=== PATIENT | female | born 1995 | race Two or more races ===

== ENCOUNTER 2025-01-23 08:55 | Outpatient (AMB) | payer MEDICAID, SELFPAY ==
--- NOTE | 2025-01-23 09:10 | AMB.OBINITIA ---
Vital Signs 01/23/25 09:15 Height 1.5 m Height Method Stated Weight 66.735 kg Weight Measurement Method Standing Scale BMI 29.7 BP 103/66 Blood Pressure Source Automatic Cuff Blood Pressure Location Left Upper Arm Position Sitting Respiration 20 Pulse 103 H Pulse Source Monitor Temp 98.2 F Temp Source Oral Pulse Oximetry (%) 98 Oxygen Delivery Method Room Air Allergies/Home Meds Allergies & Medications Allergies No Known Allergies Allergy (Verified 01/23/25 09:17) Intake Visit Data Collection New Patient or Established: Established Patient (seen at [facility] within 3 years) Reason for Visit:: CARE TRANSFER Seen by Clinical Staff ONLY (RN/MA): No Manager Strategy & Account Required: No Do You Feel Safe at Home: Yes Authorities Contacted: N/A PCP or OBGYN visit in last 3 months: Yes Hx Now: Yes Are you currently on any form of Control: No Last menstrual period: 06/07/24 Pain Present Currently: No Pain Scale Used: Hughes-Escobar/Numerical Pain scale:: 0 Smoking Status Smoking Status: Never smoker Questionnaires Covid-19 Vaccine Questionnaire Has patient been vacinated for Covid-19 Have you been vacinated for Covid-19: No PHQ-9 PHQ-2 Over the last 2 weeks, how often have you been bothered by any of the following problems? 1. Little interest or pleasure in doing things: not at all 2. Feeling down, depressed, or hopeless: not at all Total score: 0 PHQ-9 3. Trouble falling or staying asleep, or sleeping too much: Not at all 4. Feeling tired or having little energy: Not at all 5. Poor appetite or overeating: Not at all 6. Feeling bad about yourself - or that you are a failure or have let yourself or your family down: Not at all 7. Trouble concentrating on things, such as reading the newspaper or watching television: Not at all 8. Moving or speaking so slowly that other people could have noticed? - Or the opposite - being so fidgety or restless that you have been moving around a lot more than usual: not at all 9. Thoughts that you would be better off or of hurting yourself in some way: Not at all Total score: 0 Source: Developed by Drs. Brian Price, Gisell B.Rafal Choudhury and colleagues, with an educational janelle from [employer]. Depression screen completed yes Social History Living Situation History Lives With: Family Housing: House Tobacco History Smoking Status: Never smoker Second Hand Smoke Exposure: No Alcohol History Alcohol Intake: Never Substance Use History Substance Use: NONE Domestic Abuse History Do You Feel Safe at Home: Yes Past Medical History Past Medical History Have you ever been diagnosed with any of the following: Neurological Problems Cerebrovascular Accident (CVA): No Transient Ischemic Attacks (TIA): No Dementia: No Alzheimer's Disease: No Parkinson's Disease: No Seizures: No Multiple Sclerosis: No Cerebral Palsy: No Guillain-[place] Syndrome: No Hernandez's Palsy: No Subdural Hematoma: No Migraine: No Cardiology Problems Myocardial Infarction: No Cardiac Arrhythmia: No Atrial Fibrillation: No Angina: No Respiratory Problems Chronic Obstructive Pulmonary Disease (COPD): No Asthma: No Bronchitis: No Emphysema: No Pneumonia: No Tuberculosis: No Hx Cough: No Cough: No Wheezing: No Chest Deformities: No Smoking: No Smoking Cessation Counseling: No Smoking Exposure: No Tobacco Use: No Stomache/Intestinal Problems Liver Cancer: No Hepatitis: No Cirrhosis: No Celiac Disease: No Gall Bladder Disease: No Gastrointestinal Bleed: No Diverticulitis: No Diverticulosis: No Ulcer: No Crohn's Disease: No Genital/Urinary Problems Chronic Kidney Disease: No Renal Disease: No Kidney Stones: No Polycystic Kidney Disease: No Neurogenic Bladder: No Reproductive Problems Breast Cancer: No Endometriosis: No Fibroids: No Genital Herpes: No Gonorrhea: No Previous Pregnancies: No Musculoskeletal Problems Muscular Dystrophy: No Myasthenia Gravis: No Marfan's Syndrome: No Bone Cancer: No Head,Eye,Nose,Throat Problems Cataracts: No Glaucoma: No Blind: No Retinal Detachment: No Endocrine Problems Diabetes Mellitus Type 1: No Diabetes Mellitus Type 2: No Kurtis's Syndrome: No Marsing's Disease: No Adrenal Disease: No Graves' Disease: No Blood Problems Anemia: No Leukemia: No Psychologic Problems Schizophrenia: No Recreational Drug Use: No Depression: No Anxiety: No Behavior Problems: No Depression: No Other Problems Hospitalization: No Hepatitis A: No Hepatitis B: No Hepatitis C: No Surgical History Angioplasty: No Appendectomy: No Breast Surgery: No Cancer Surgery: No Cholecystectomy: No Colostomy: No History of Present Illness HPI Narrative 29 yo for 1st visit to [facility]. transfer from [facility]. lmp 9/3/24. EDC 03/12/25. IUP 33w2. Thus far has been uncomplicated. no PMH, no social habit, no surgery. partner involved. fetus active, no PTL complaints. last sono at [facility] was 01/20/25. refused TDAP. med release done OB Initial Visit OB Flowsheet OB Flowsheet Initial Weight: Not Recorded Date <del>?</del> EGA Weight Edema CTX Effacement BP Fundal ht Pres Dilation Effacement Station Visit Note Alb Glu FHR Mov 01/23/25 <del>?</del> 32w 6d 66.735 kg absent absent 33 Patient is OB transfer of care from [facility]. Last period was June 07, 2024. Estimated due date March 12, 2025. So far has been uncomplicated. Patient had several maternal- medicine appointments. Her last sono was January 16, 2025. Reports movement. Denies any signs or symptoms of labor. Patient has backache impression. Medical release for OB records was signed. 124 active Menstrual History Menstrual reliability: definite Flow: normal Menstrual regularity: regular Monthly: Yes Age at menarche: 14 On control pills at conception: No Associated symptoms (LMP): Denies amenorrhea, nausea, vomiting, fatigue, breast tenderness, urinary frequency, irritability, bloating or other OB History : 1 Para: 0 Hx # Pregnancies: 0 Hx Total # of Abortions (Spontaneous & Elective): 0 # of Living Children: 0 Infection History & Risk Evaluation History of STDs: none Genetic Screening & History Genetic Screening/Teratology Counseling - Includes patient, baby's father, or anyone in either family with: 1. Patient's age 35 years or older as of estimated date of delivery: No 2. Thalassemia (Yoruba, Kinyarwanda, Mediterranean, or Background); MCV less than 80: No 3. Neural Tube Defect (Meningomyelocele, Spina Bifida, or Anencephaly): No 4. Congenital Heart Defect: No 5. Down Syndrome: No 6. Wilfrid-Sachs (Ashkenazi [place], Cajun, [place]): No 7. Patrick Disease (Ashkenazi Holiness): No 8. Familial Dysautonomia (Ashkenazi Holiness): No 9. Sickle Cell Disease or Trait (): No 10. Hemophilia or other blood disorders: No 11. Muscular Dystrophy: No 12. Cystic Fibrosis: No 13. Elzbieta's Chorea: No 14. Mental Retardation/Autism: No 15. Other inherited genetic or chromosomal disorder: No 16. Maternal Metabolic Disorder (EG,TYPE 1 Diabetes, PKU): No 17. Patient or baby's father had a child with defects not listed above: No 18. Recurrent loss or a stillbirth: No 19. Medications (including supplements, vitamins, herbs or otc drugs)/illicit/recreational drugs/alcohol since last menstrual period: No 20. Any other: No Infection History 1. Live with someone with TB or exposed to TB: No 2. Rash or viral illness since last menstrual period: No 3. Hepatitis B,C: No Other (see comments) Source: [employer] Review of Systems Review of Systems Systems Reviewed: All systems reviewed, normal except as documented Constitutional Constitutional: Denies fatigue Gastrointestinal Gastrointestinal: Denies bloating, Denies nausea and Denies vomiting Genitourinary Genitourinary: Denies amenorrhea and Denies urinary frequency Psychiatric Psychiatric: Denies irritability Endocrine Endocrine: Denies fatigue Exam General Limitations: no limitations General Appearance: alert, in no apparent distress, comfortable, cooperative, healthy appearing, well developed and well groomed Chest Chest inspection: Present normal inspection and symmetric chest wall rise Resp Respiratory exam: Present normal lung sounds bilaterally Card Cardiovascular exam: Present regular rate, normal rhythm and normal heart sounds Abdominal Abdominal exam: Present soft (fh:33, fht 125) and normal bowel sounds Psych Psychiatric exam: Present normal affect and normal mood Assessment & Plan Diagnosis / Problem List (1) Encounter for supervision of normal first , third trimester: Status: Acute Additional Plan Follow Up: 2 Weeks (ob) Office Procedures OB Clinic LOC & Office Proc's Nursing/Assessment Patient Status: Initial/New Patient OB Clinic Nursing Assessment: Medication Reconciliation, Update PMH in EMR and Vital Signs OB Clinic Coordination of Care: Complex Care and Chronic Disease 1-5, Consent,records obtained, informed consent, Education Simp Pt/Fam, Lab and Imaging orders, Results/Orders obtained and Staff clarify orders Special Needs: Heart tones New Patient Charge New Patient Point Assignment: [id number] New Patient Point Charge: PIG IRON LOADER Level 4 ([id number])
[2025-01-23 09:15] VITALS: BP 103/66; PULSE 103; RESP 20; TEMP 36.8; O2SAT 98; BMI 29.7
== END 2025-01-23 09:50 | disposition home or self-care (01) ==
LOC: HODSOBC 08:55
PROVIDERS: Supervising Provider Obstetrics & Gynecology; Visit Provider Advanced Practice Midwife
DX: Z34.03 Encounter for supervision of normal first pregnancy, third trimester (principal); Z3A.32 32 weeks gestation of pregnancy
CPT/HCPCS: 99204; G0463

== ENCOUNTER 2025-02-06 10:07 | Outpatient (AMB) | payer MEDICAID, SELFPAY ==
--- NOTE | 2025-02-06 10:31 | AMB.OBVISIT ---
Vital Signs 02/06/25 10:32 Height 1.5 m Height Method Stated Weight 66.791 kg Weight Measurement Method Standing Scale BMI 29.7 BP 116/75 Blood Pressure Source Automatic Cuff Blood Pressure Location Left Upper Arm Position Sitting Respiration 18 Pulse 99 Pulse Source Monitor Temp 97.2 F Temp Source Oral Pulse Oximetry (%) 97 Oxygen Delivery Method Room Air Allergies/Home Meds Allergies & Medications Allergies No Known Allergies Allergy (Verified 02/06/25 10:36) Medication Reconciliation clotrimazole 2 % vaginal cream (Gyne-Lotrimin) 1 appful vaginal QHS 3 days #21 grams 02/06/25 [Rx] Intake Visit Data Collection New Patient or Established: Established Patient (seen at [facility] within 3 years) Reason for Visit:: obc Seen by Clinical Staff ONLY (RN/MA): No Entrepreneurship Program Director Required: No Do You Feel Safe at Home: Yes Authorities Contacted: N/A PCP or OBGYN visit in last 3 months: Yes Date of Last PCP or OBGYN visit: 01/23/25 Hx Now: Yes Are you currently on any form of Control: No Pain Present Currently: No Pain Scale Used: Hughes-Escobar/Numerical Pain scale:: 0 Smoking Status Smoking Status: Never smoker Questionnaires Covid-19 Vaccine Questionnaire Has patient been vacinated for Covid-19 Have you been vacinated for Covid-19: Yes PHQ-9 PHQ-2 Over the last 2 weeks, how often have you been bothered by any of the following problems? 1. Little interest or pleasure in doing things: not at all 2. Feeling down, depressed, or hopeless: not at all Total score: 0 PHQ-9 3. Trouble falling or staying asleep, or sleeping too much: Not at all 4. Feeling tired or having little energy: Not at all 5. Poor appetite or overeating: Not at all 6. Feeling bad about yourself - or that you are a failure or have let yourself or your family down: Not at all 7. Trouble concentrating on things, such as reading the newspaper or watching television: Not at all 8. Moving or speaking so slowly that other people could have noticed? - Or the opposite - being so fidgety or restless that you have been moving around a lot more than usual: not at all 9. Thoughts that you would be better off or of hurting yourself in some way: Not at all Total score: 0 If you checked off any problems, how difficult have these problems made it for you to do your work, take care of things at home, or get along with other people?: not difficult at all Source: Developed by Drs. Brian Price, Gisell Herzog, Rafal Leong and colleagues, with an educational janelle from [employer]. Depression screen completed yes Social History Living Situation History Marital Status: Lives With: Family Housing: House Tobacco History Smoking Status: Never smoker Second Hand Smoke Exposure: No Alcohol History Alcohol Intake: Never Substance Use History Substance Use: NONE Domestic Abuse History Do You Feel Safe at Home: Yes Past Medical History Past Medical History Have you ever been diagnosed with any of the following: Neurological Problems Cerebrovascular Accident (CVA): No Transient Ischemic Attacks (TIA): No Dementia: No Alzheimer's Disease: No Parkinson's Disease: No Seizures: No Multiple Sclerosis: No Cerebral Palsy: No Guillain-[place] Syndrome: No Hernandez's Palsy: No Subdural Hematoma: No Migraine: No Cardiology Problems Myocardial Infarction: No Cardiac Arrhythmia: No Atrial Fibrillation: No Angina: No Respiratory Problems Chronic Obstructive Pulmonary Disease (COPD): No Asthma: No Bronchitis: No Emphysema: No Pneumonia: No Tuberculosis: No Hx Cough: No Cough: No Wheezing: No Chest Deformities: No Smoking: No Smoking Cessation Counseling: No Smoking Exposure: No Tobacco Use: No Stomache/Intestinal Problems Liver Cancer: No Hepatitis: No Cirrhosis: No Celiac Disease: No Gall Bladder Disease: No Gastrointestinal Bleed: No Diverticulitis: No Diverticulosis: No Ulcer: No Crohn's Disease: No Genital/Urinary Problems Renal Disease: No Kidney Stones: No Polycystic Kidney Disease: No Neurogenic Bladder: No Reproductive Problems Breast Cancer: No Endometriosis: No Fibroids: No Genital Herpes: No Gonorrhea: No Previous Pregnancies: No Musculoskeletal Problems Muscular Dystrophy: No Myasthenia Gravis: No Marfan's Syndrome: No Bone Cancer: No Head,Eye,Nose,Throat Problems Cataracts: No Glaucoma: No Blind: No Retinal Detachment: No Endocrine Problems Diabetes Mellitus Type 1: No Diabetes Mellitus Type 2: No Kurtis's Syndrome: No Florence's Disease: No Adrenal Disease: No Graves' Disease: No Blood Problems Anemia: No Leukemia: No Psychologic Problems Schizophrenia: No Recreational Drug Use: No Depression: No Anxiety: No Behavior Problems: No Depression: No Other Problems Hospitalization: No Hepatitis A: No Hepatitis B: No Hepatitis C: No Surgical History Angioplasty: No Appendectomy: No Breast Surgery: No Cancer Surgery: No Cholecystectomy: No Colostomy: No Care OB Visit Log OB Flowsheet Initial Weight: Not Recorded Date <del>?</del> EGA Weight Edema CTX Effacement BP Fundal ht Pres Dilation Effacement Station Visit Note Alb Glu FHR Mov 01/23/25 <del>?</del> 32w 6d 66.735 kg absent absent 103/66 33 Patient is OB transfer of care from [facility]. Last period was June 07, 2024. Estimated due date March 12, 2025. So far has been uncomplicated. Patient had several maternal- medicine appointments. Her last sono was January 16, 2025. Reports movement. Denies any signs or symptoms of labor. Patient has backache impression. Medical release for OB records was signed. 124 active 02/06/25 <del>?</del> 34w 6d 66.791 kg absent absent 116/75 34 cephalic complaints of vaginal discharge, itching and burning, patient also complains of labial bumps x 2 week/painful, fetus active, no bleeding or leaking. no c/o contraction. curdy white discharge, vagina red, several cluster of lesion, crease of groin, papular. hepes culture today, nuswab plus, gynelotrimin x 7 days at night, no sex, ptl precaution, fkc bid. rtc 1 week oBC and gbs 135 active KYRA Calculator Estimated Delivery Date Method Current WG Current Estimate 03/14/25 Ultrasound #1 34w 6d Other Estimates 03/14/25 LMP (Certain) 34w 6d Assessment & Plan Diagnosis / Problem List (1) Encounter for supervision of normal first , third trimester: Status: Acute (2) Recurrent candidiasis of vagina: Status: Acute (3) Herpes genitalis: Status: Acute Qualifiers: Herpes simplex infection site: other site of urogenital tract Qualified Code(s): A60.09 - Herpesviral infection of other urogenital tract Plan gynelotrimin x3, continue PNV, comfort measure for vaginitis, no sex/safe sex, Nuswab plus and herpes culture today. discuss FKC bid and labor precaution. RTC 1 week and gbs Additional Plan Follow Up: 1 Week (obc and gbs) Office Procedures OB Clinic LOC & Office Proc's Nursing/Assessment Patient Status: Established Patient OB Clinic Nursing Assessment: BP Monitoring, Medication Reconciliation, Update PMH in EMR and Vital Signs OB Clinic Coordination of Care: Consent,records obtained, informed consent, Education Simp Pt/Fam and Staff clarify orders Special Needs: Heart tones Established Patient Charge Established Patient Point Assignment: 105 Established Patient Point Charge: EP Level 3 (80-115)
[2025-02-06 10:32] VITALS: BP 116/75; PULSE 99; RESP 18; TEMP 36.2; O2SAT 97; BMI 29.7
== END 2025-02-06 10:51 | disposition home or self-care (01) ==
LOC: HODSOBC 10:07
PROVIDERS: Supervising Provider Advanced Practice Midwife; Visit Provider Advanced Practice Midwife
DX: O09.893 Supervision of other high risk pregnancies, third trimester (principal); O98.813 Other maternal infectious and parasitic diseases complicating pregnancy, third trimester; B37.31 Acute candidiasis of vulva and vagina; O98.313 Other infections with a predominantly sexual mode of transmission complicating pregnancy, third trimester; Z3A.34 34 weeks gestation of pregnancy; A60.00 Herpesviral infection of urogenital system, unspecified
CPT/HCPCS: 81001; 99213; G0463

== ENCOUNTER 2025-02-13 11:52 | Outpatient (AMB) | payer MEDICAID, SELFPAY ==
--- NOTE | 2025-02-13 11:54 | AMB.OBVISIT ---
Allergies/Home Meds Allergies & Medications Allergies No Known Allergies Allergy (Verified 02/13/25 11:55) Medication Reconciliation fluconazole 150 mg tablet 150 mg PO QDAY 3 days #3 tabs 02/13/25 [Rx Confirmed 02/13/25] Intake Visit Data Collection New Patient or Established: Established Patient (seen at [facility] within 3 years) Reason for Visit:: CARE Consent obtained for Telemed Visit: Yes Seen by Clinical Staff ONLY (RN/MA): No Account Installer Required: No Do You Feel Safe at Home: Yes Authorities Contacted: N/A PCP or OBGYN visit in last 3 months: Yes Hx Now: Yes Are you currently on any form of Control: No Pain Present Currently: No Pain Scale Used: Hughes-Escobar/Numerical Pain scale:: 0 Smoking Status Smoking Status: Never smoker For Telemed visit only Telemed Video/Phone Visit: Yes Verbal consent obtained for Telemed visit?: Yes Verbal Consent witness name: TERRIE KAMERON Frank PHQ-9 PHQ-2 Over the last 2 weeks, how often have you been bothered by any of the following problems? 1. Little interest or pleasure in doing things: not at all 2. Feeling down, depressed, or hopeless: not at all Total score: 0 PHQ-9 3. Trouble falling or staying asleep, or sleeping too much: Not at all 4. Feeling tired or having little energy: Not at all 5. Poor appetite or overeating: Not at all 6. Feeling bad about yourself - or that you are a failure or have let yourself or your family down: Not at all 7. Trouble concentrating on things, such as reading the newspaper or watching television: Not at all 8. Moving or speaking so slowly that other people could have noticed? - Or the opposite - being so fidgety or restless that you have been moving around a lot more than usual: not at all 9. Thoughts that you would be better off or of hurting yourself in some way: Not at all Total score: 0 Source: Developed by Drs. Brian Price, Gisell Herzog, Rafal Leong and colleagues, with an educational janelle from [employer]. Depression screen completed yes Social History Living Situation History Lives With: Family Housing: House Tobacco History Smoking Status: Never smoker Second Hand Smoke Exposure: No Alcohol History Alcohol Intake: Never Substance Use History Substance Use: NONE Domestic Abuse History Do You Feel Safe at Home: Yes Care OB Visit Log OB Flowsheet Initial Weight: Not Recorded Date <del>?</del> EGA Weight Edema CTX Effacement BP Fundal ht Pres Dilation Effacement Station Visit Note Alb Glu FHR Mov 01/23/25 <del>?</del> 32w 6d 66.735 kg absent absent 103/66 33 Patient is OB transfer of care from [facility]. Last period was June 07, 2024. Estimated due date March 12, 2025. So far has been uncomplicated. Patient had several maternal- medicine appointments. Her last sono was January 16, 2025. Reports movement. Denies any signs or symptoms of labor. Patient has backache impression. Medical release for OB records was signed. 124 active 02/06/25 <del>?</del> 34w 6d 66.791 kg absent absent 116/75 34 cephalic complaints of vaginal discharge, itching and burning, patient also complains of labial bumps x 2 week/painful, fetus active, no bleeding or leaking. no c/o contraction. curdy white discharge, vagina red, several cluster of lesion, crease of groin, papular. hepes culture today, nuswab plus, gynelotrimin x 7 days at night, no sex, ptl precaution, fkc bid. rtc 1 week oBC and gbs 135 active 02/13/25 <del>?</del> 35w 6d fetus active. no c/o of labor. continued c/o vaginitis. comfort measure, ordered diflucan 150 x3, r/s appointment for 02/15/25. GBS NV. discuss labor precaution and fkc bid KYRA Calculator Estimated Delivery Date Method Current WG Current Estimate 03/14/25 Ultrasound #1 35w 6d Other Estimates 03/14/25 LMP (Certain) 35w 6d Comments: 29 yo . . lmp 06/07/25. EDC 03/14/25. O+,abs-,rpr;;nr, rub imm, hbsag-,hiv-, GC/CT-, UT- ,NIPT and carrier screen-, 1 hr gtt:high, 3hr gtt: fasting normal, 1 value high: passed 3 hr gtt. on GDM diet Assessment & Plan Diagnosis / Problem List (1) Encounter for supervision of normal first , third trimester: Status: Acute Plan NUSWAB pending, comfort measure for vaginitis, diflucan 150 x3, r/s appointment for 02/15/25. GBS NV, labor precaution, fkc bid. Additional Plan Follow Up: 2 Days (obc and gbs) Office Procedures OB Clinic LOC & Office Proc's Nursing/Assessment Patient Status: Established Patient OB Clinic Nursing Assessment: Medication Reconciliation, Update PMH in EMR and Vital Signs OB Clinic Coordination of Care: Complex Care and Chronic Disease 1-5, Consent,records obtained, informed consent, Education Simp Pt/Fam and Results/Orders obtained Established Patient Charge Established Patient Point Assignment: 80 Telehealth If patient is seen using Teleconference methods, complete New/Est section, but DO NOT anjelica points only anjelica the correct Telemed visit type Telemed Phone/Video with patient at home & Dr,PA,CARVER HAND: Yes INTERNAL COMBUSTION ENGINE ASSEMBLER: Past Medical History Past Medical History: No Hx Breast Cancer, No Hx Anemia, No Hx Renal Disease, No Hx Diabetes Mellitus Type 1 and No Hx Diabetes Mellitus Type 2
== END 2025-02-13 12:03 | disposition home or self-care (01) ==
LOC: HODSOBC 11:52
PROVIDERS: Supervising Provider Advanced Practice Midwife; Visit Provider Advanced Practice Midwife
DX: O09.893 Supervision of other high risk pregnancies, third trimester (principal); O23.593 Infection of other part of genital tract in pregnancy, third trimester; Z3A.35 35 weeks gestation of pregnancy
CPT/HCPCS: 99212; G0463

== ENCOUNTER 2025-02-22 13:27 | Outpatient (AMB) | payer MEDICAID, SELFPAY ==
[2025-02-22 13:34] VITALS: BP 121/87; PULSE 113; RESP 18; TEMP 36.2; O2SAT 97; BMI 30.3
--- NOTE | 2025-02-22 13:34 | OBCLNT_ITS ---
Vital Signs 02/22/25 13:34 Height 1.5 m Height Method Stated Weight 68.209 kg Weight Measurement Method Standing Scale BMI 30.3 BP 121/87 H Blood Pressure Source Automatic Cuff Blood Pressure Location Left Upper Arm Position Sitting Respiration 18 Pulse 113 H Pulse Source Monitor Temp 97.2 F Temp Source Oral Pulse Oximetry (%) 97 Oxygen Delivery Method Room Air Allergies/Home Meds Allergies & Medications Allergies No Known Allergies Allergy (Verified 02/22/25 13:35) Medication Reconciliation No Known Home Medications 02/22/25 [History Confirmed 02/22/25] Intake Visit Data Collection New Patient or Established: Established Patient (seen at [facility] within 3 years) Reason for Visit:: obc Seen by Clinical Staff ONLY (RN/MA): No Geophysical Data Technician Required: No Do You Feel Safe at Home: Yes Authorities Contacted: N/A PCP or OBGYN visit in last 3 months: Yes Date of Last PCP or OBGYN visit: 02/06/25 Hx Now: Yes Are you currently on any form of Control: No Pain Present Currently: No Pain Scale Used: Hughes-Escobar/Numerical Pain scale:: 0 Smoking Status Smoking Status: Never smoker Questionnaires Covid-19 Vaccine Questionnaire Has patient been vacinated for Covid-19 Have you been vacinated for Covid-19: Yes PHQ-9 PHQ-2 Over the last 2 weeks, how often have you been bothered by any of the following problems? 1. Little interest or pleasure in doing things: not at all 2. Feeling down, depressed, or hopeless: not at all Total score: 0 PHQ-9 3. Trouble falling or staying asleep, or sleeping too much: Not at all 4. Feeling tired or having little energy: Not at all 5. Poor appetite or overeating: Not at all 6. Feeling bad about yourself - or that you are a failure or have let yourself or your family down: Not at all 7. Trouble concentrating on things, such as reading the newspaper or watching television: Not at all 8. Moving or speaking so slowly that other people could have noticed? - Or the opposite - being so fidgety or restless that you have been moving around a lot more than usual: not at all 9. Thoughts that you would be better off or of hurting yourself in some way: Not at all Total score: 0 If you checked off any problems, how difficult have these problems made it for you to do your work, take care of things at home, or get along with other people?: not difficult at all Source: Developed by Drs. Brian Price, Gisell Herzog, Rafal Leong and colleagues, with an educational janelle from [employer]. 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 Last period was June 07, 2024. Estimated due date March 12, 2025. So far has been uncomplicated. Patient had several maternal- medicine appointments. Her last sono was January 16, 2025. Reports movement. Denies any signs or symptoms of labor. Patient has backache impression. Medical release for OB records was signed. 02/06/25 -?-?-?-?-?-?-?-?-?-?-?-?- 34w 6d 66.791 kg 116/75 absent cephalic 34 135 active complaints of vaginal discharge, itching and burning, patient also complains of labial bumps x 2 week/painful, fetus active, no bleeding or leaking. no c/o contraction. curdy white discharge, vagina red, several cluster of lesion, crease of groin, papular. hepes culture today, nuswab plus, gynelotrimin x 7 days at night, no sex, ptl precaution, fkc bid. rtc 1 week oBC and gbs 02/13/25 -?-?-?-?-?-?-?-?-?-?-?-?- 35w 6d fetus activ e. no c/o of labor. continued c/o vaginitis. comfort measure, ordered diflucan 150 x3, r/s appointment for 02/15/25. GBS NV. discuss labor precaution and fkc bid 02/22/25 -?-?-?-?-?-?-?-?-?-?-?-?- 37w 1d 68.209 kg 121/87 occasional cephalic 36 145 active fetus active, occ uc, denies leaking or bleeding. questions about labor, denies epi gastric pain, no CAMPOS,no vision chg repeat gbs, test was not ran by lab robyn, discuss labor precaution, fkc bid, discuss PIH s/s. continue PNV, rtc 1 week obc KYRA Calculator Estimated Delivery Date Method Current WG Current Estimate 03/14/25 LMP (Certain) 37w 1d Other Estimates 03/14/25 Ultrasound #1 37w 1d 03/14/25 Ultrasound #2 37w 1d Office Procedures OB Clinic LOC & Office Proc's Nursing/Assessment Patient Status: Established Patient OB Clinic Nursing Assessment: Medication Reconciliation, Update PMH in EMR and Vital Signs OB Clinic Coordination of Care: Education Complex Pt/Fam, Consent,records obtained, informed consent and Staff clarify orders Special Needs: Heart tones Established Patient Charge Established Patient Point Assignment: 95 Established Patient Point Charge: EP Level 3 (80-115) Assessment & Plan Additional Plan Follow Up: 1 Week (obc)
--- NOTE | 2025-02-22 13:34 | AMB.OBVISIT ---
Vital Signs 02/22/25 13:34 Height 1.5 m Height Method Stated Weight 68.209 kg Weight Measurement Method Standing Scale BMI 30.3 BP 121/87 H Blood Pressure Source Automatic Cuff Blood Pressure Location Left Upper Arm Position Sitting Respiration 18 Pulse 113 H Pulse Source Monitor Temp 97.2 F Temp Source Oral Pulse Oximetry (%) 97 Oxygen Delivery Method Room Air Allergies/Home Meds Allergies & Medications Allergies No Known Allergies Allergy (Verified 02/22/25 13:35) Medication Reconciliation No Known Home Medications 02/22/25 [History Confirmed 02/22/25] Intake Visit Data Collection New Patient or Established: Established Patient (seen at [facility] within 3 years) Reason for Visit:: OBC Do You Feel Safe at Home: Yes Authorities Contacted: N/A PCP or OBGYN visit in last 3 months: Yes Smoking Status Smoking Status: Never smoker Questionnaires PHQ-9 PHQ-2 Over the last 2 weeks, how often have you been bothered by any of the following problems? 1. Little interest or pleasure in doing things: not at all PHQ-9 8. Moving or speaking so slowly that other people could have noticed? - Or the opposite - being so fidgety or restless that you have been moving around a lot more than usual: not at all Source: Developed by Drs. Brian Price, Gisell Herzog, Rafal Leong and colleagues, with an educational janelle from [employer]. 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 Last period was June 07, 2024. Estimated due date March 12, 2025. So far has been uncomplicated. Patient had several maternal- medicine appointments. Her last sono was January 16, 2025. Reports movement. Denies any signs or symptoms of labor. Patient has backache impression. Medical release for OB records was signed. 02/06/25 <del>?</del> 34w 6d 66.791 kg 116/75 absent cephalic 34 135 active complaints of vaginal discharge, itching and burning, patient also complains of labial bumps x 2 week/painful, fetus active, no bleeding or leaking. no c/o contraction. curdy white discharge, vagina red, several cluster of lesion, crease of groin, papular. hepes culture today, nuswab plus, gynelotrimin x 7 days at night, no sex, ptl precaution, fkc bid. rtc 1 week oBC and gbs 02/13/25 <del>?</del> 35w 6d fetus active. no c/o of labor. continued c/o vaginitis. comfort measure, ordered diflucan 150 x3, r/s appointment for 02/15/25. GBS NV. discuss labor precaution and fkc bid 02/22/25 <del>?</del> 37w 1d 68.209 kg 121/87 occasional cephalic 36 145 active fetus active, occ uc, denies leaking or bleeding. questions about labor, denies epi gastric pain, no CAMPOS,no vision chg repeat gbs, test was not ran by lab robyn, discuss labor precaution, fkc bid, discuss PIH s/s. continue PNV, rtc 1 week obc KYRA Calculator Estimated Delivery Date Method Current WG Current Estimate 03/14/25 LMP (Certain) 37w 1d Other Estimates 03/14/25 Ultrasound #1 37w 1d 03/14/25 Ultrasound #2 37w 1d Office Procedures OB Clinic LOC & Office Proc's Nursing/Assessment Patient Status: Established Patient OB Clinic Nursing Assessment: Medication Reconciliation, Update PMH in EMR and Vital Signs OB Clinic Coordination of Care: Education Complex Pt/Fam, Consent,records obtained, informed consent and Staff clarify orders Special Needs: Heart tones Established Patient Charge Established Patient Point Assignment: 95 Established Patient Point Charge: EP Level 3 (80-115) Assessment & Plan Diagnosis / Problem List (1) Encounter for supervision of normal first , third trimester: Status: Acute Plan review s/s of PIH, discuss s/s of labor and comfort measure, repeat GBS, review fkc BID, Go to [facility] if: ROM,VB or regular uc. rtc 1 week OBC Additional Plan Follow Up: 1 Week (obc)
== END 2025-02-22 13:50 | disposition home or self-care (01) ==
LOC: HODSOBC 13:27
PROVIDERS: Supervising Provider Obstetrics & Gynecology; Visit Provider Advanced Practice Midwife
DX: Z34.93 Encounter for supervision of normal pregnancy, unspecified, third trimester (principal); Z3A.37 37 weeks gestation of pregnancy
CPT/HCPCS: 99213; G0463

== ENCOUNTER 2025-03-07 10:27 | Outpatient (AMB) | payer MEDICAID, SELFPAY ==
[2025-03-07 10:50] VITALS: BP 109/74; PULSE 98; RESP 17; TEMP 36.8; O2SAT 97; BMI 30.7
--- NOTE | 2025-03-07 10:50 | AMB.OBVISIT ---
Vital Signs 03/07/25 10:50 Height 1.5 m Height Method Stated Weight 68.946 kg Weight Measurement Method Standing Scale BMI 30.7 BP 109/74 Blood Pressure Source Automatic Cuff Blood Pressure Location Right Upper Arm Position Sitting Respiration 17 Pulse 98 Pulse Source Monitor Temp 98.3 F Temp Source Temporal Artery Scan Pulse Oximetry (%) 97 Oxygen Delivery Method Room Air Allergies/Home Meds Allergies & Medications Allergies No Known Allergies Allergy (Verified 03/07/25 10:58) Medication Reconciliation fluconazole 150 mg tablet 150 mg PO QDAY 3 days #3 tabs 03/07/25 [Rx] hydroxyzine HCl 25 mg tablet 25 mg PO BID PRN itching 3 days #6 tabs 03/07/25 [Rx] Intake Visit Data Collection New Patient or Established: Established Patient (seen at [facility] [place] 3 years) Reason for Visit:: OBC 39WEEKS Seen by Clinical Staff ONLY (RN/MA): No Do You Feel Safe at Home: Yes Authorities Contacted: N/A PCP or OBGYN visit in last 3 months: Yes Date of Last PCP or OBGYN visit: 02/22/25 Hx Now: Yes Are you currently on any form of Control: No Pain Present Currently: Yes Pain Location: Abdomen Pain Scale Used: Hughes-Escobar/Numerical Pain scale:: 7 Smoking Status Smoking Status: Never smoker Questionnaires Covid-19 Vaccine Questionnaire Has patient been vacinated for Covid-19 Have you been vacinated for Covid-19: Yes PHQ-9 PHQ-2 Over the last 2 weeks, how often have you been bothered by any of the following problems? 1. Little interest or pleasure in doing things: not at all 2. Feeling down, depressed, or hopeless: not at all Total score: 0 PHQ-9 3. Trouble falling or staying asleep, or sleeping too much: Not at all 4. Feeling tired or having little energy: Not at all 5. Poor appetite or overeating: Not at all 6. Feeling bad about yourself - or that you are a failure or have let yourself or your family down: Not at all 7. Trouble concentrating on things, such as reading the newspaper or watching television: Not at all 8. Moving or speaking so slowly that other people could have noticed? - Or the opposite - being so fidgety or restless that you have been moving around a lot more than usual: not at all 9. Thoughts that you would be better off or of hurting yourself in some way: Not at all Total score: 0 If you checked off any problems, how difficult have these problems made it for you to do your work, take care of things at home, or get along with other people?: not difficult at all Source: Developed by Drs. Brian Price, Gisell Herzog, Rafal Leong and colleagues, with an educational janelle from [email or web address]. 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 Last period was June 07, 2024. Estimated due date March 12, 2025. So far has been uncomplicated. Patient had several maternal- medicine appointments. Her last sono was January 16, 2025. Reports movement. Denies any signs or symptoms of labor. Patient has backache impression. Medical release for OB records was signed. 02/06/25 <del>?</del> 34w 6d 66.791 kg 116/75 absent cephalic 34 135 active complaints of vaginal discharge, itching and burning, patient also complains of labial bumps x 2 week/painful, fetus active, no bleeding or leaking. no c/o contraction. curdy white discharge, vagina red, several cluster of lesion, crease of groin, papular. hepes culture today, nuswab plus, gynelotrimin x 7 days at night, no sex, ptl precaution, fkc bid. rtc 1 week oBC and gbs 02/13/25 <del>?</del> 35w 6d fetus active. no c/o of labor. continued c/o vaginitis. comfort measure, ordered diflucan 150 x3, r/s appointment for 02/15/25. GBS NV. discuss labor precaution and fkc bid 02/22/25 <del>?</del> 37w 1d 68.209 kg 121/87 occasional cephalic 36 145 active fetus active, occ uc, denies leaking or bleeding. questions about labor, denies epi gastric pain, no CAMPOS,no vision chg repeat gbs, test was not ran by lab robyn, discuss labor precaution, fkc bid, discuss PIH s/s. continue PNV, rtc 1 week obc 03/07/25 <del>?</del> 39w 0d 68.946 kg 109/74 occasional cephalic 38 156 active patient refused pelvic exam, unable to relax, heavy yeast, perineum clear, no lesion, vagina red,swollen. occ uc, no VB or LOF, fetus very active per patient, complains of rash and itchig abdomen x 5 days. c/o URI symptoms x 5 days, afebrile diflucan 150 x3, discuss labor precaution, fkc bid, hydrate, continue pnv. comfort measure for abdomen rash, hydroxyzine 25mg bid x 3 days for rash and itching, review fkc bid and comfort measure for early labor. rtc 1 week obc. comfort measure for cough/cold. ER precaution reviewed KYRA Calculator Estimated Delivery Date Method Current WG Current Estimate 03/14/25 LMP (Certain) 39w 0d Other Estimates 03/14/25 Ultrasound #1 39w 0d 03/14/25 Ultrasound #2 39w 0d Notes Visit Date: 03/07/25 Last Updated by: Sue Watts CNM 29 yo . lmp 06/07/24. EDC 03/14/25. O+,ABS-,RPR::NR, RUB imm, HBSAG-,HIV-<HC-, GC/CT-, + herpes, no outbreaks. GBS-. EFW 40% Office Procedures OB Clinic LOC & Office Proc's Nursing/Assessment Patient Status: Established Patient OB Clinic Nursing Assessment: Medication Reconciliation, Update PMH in EMR and Vital Signs OB Clinic Coordination of Care: Complex Care and Chronic Disease 1-5, Consent,records obtained, informed consent, Education Simp Pt/Fam and Staff clarify orders Special Needs: Heart tones Established Patient Charge Established Patient Point Assignment: 115 Established Patient Point Charge: EP Level 3 (80-115) Assessment & Plan Diagnosis / Problem List (1) Encounter for supervision of normal first , third trimester: Status: Acute (2) Recurrent candidiasis of vagina: Status: Acute Plan diflucan 150 x3, comfort measure for yeast infection, discuss labor precaution and fkc bid. discuss comfort measure for labor, discuss comfort easure for URI. hydroxyzine 25 mg bid for abdominal rash and itching. discuss comfort measure. RTC 1 week obc Additional Plan Follow Up: 1 Week (obc)
== END 2025-03-07 12:05 | disposition home or self-care (01) ==
LOC: HODSOBC 10:27
PROVIDERS: Supervising Provider Advanced Practice Midwife; Visit Provider Advanced Practice Midwife
DX: O09.893 Supervision of other high risk pregnancies, third trimester (principal); Z3A.39 39 weeks gestation of pregnancy; O98.813 Other maternal infectious and parasitic diseases complicating pregnancy, third trimester; B37.31 Acute candidiasis of vulva and vagina
CPT/HCPCS: 99213; G0463

== ENCOUNTER 2025-03-15 09:49 | Outpatient (AMB) | payer MEDICAID, SELFPAY ==
--- NOTE | 2025-03-15 10:08 | OBCLNT_ITS ---
Vital Signs 03/15/25 10:11 Height 1.5 m Height Method Stated Weight 69.456 kg Weight Measurement Method Standing Scale BMI 30.8 BP 116/79 Blood Pressure Source Automatic Cuff Blood Pressure Location Right Upper Arm Position Sitting Respiration 18 Pulse 94 Pulse Source Monitor Temp 98.2 F Temp Source Temporal Artery Scan Pulse Oximetry (%) 98 Oxygen Delivery Method Room Air Allergies/Home Meds Allergies & Medications Allergies No Known Allergies Allergy (Verified 03/07/25 10:58) Intake Visit Data Collection New Patient or Established: Established Patient (seen at [facility] within 3 years) Reason for Visit:: OB FOLLOW UP/PT HAS RASH ITCHING ON BODY FOR ACOUPLE OF DAY/BROWN VAGINAL DISCHARGE Door Cutter Required: No Do You Feel Safe at Home: Yes Authorities Contacted: N/A PCP or OBGYN visit in last 3 months: Yes Date of Last PCP or OBGYN visit: 03/07/25 Hx Now: Yes Are you currently on any form of Control: No Pain Present Currently: No Smoking Status Smoking Status: Never smoker Questionnaires PHQ-9 PHQ-2 Over the last 2 weeks, how often have you been bothered by any of the following problems? 1. Little interest or pleasure in doing things: not at all PHQ-9 8. Moving or speaking so slowly that other people could have noticed? - Or the opposite - being so fidgety or restless that you have been moving around a lot more than usual: not at all Source: Developed by Drs. Brian Price, Gisell Herzog, Rafal Leong and colleagues, with an educational janelle from [employer]. 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 Last period was June 07, 2024. Estimated due date March 12, 2025. So far has been uncomplicated. Patient had several maternal- medicine appointments. Her last sono was January 16, 2025. Reports movement. Denies any signs or symptoms of labor. Patient has backache impression. Medical release for OB records was signed. 02/06/25 -?-?-?-?-?-?-?-?-?-?-?-?- 34w 6d 66.791 kg 116/75 absent cephalic 34 135 active complaints of vaginal discharge, itching and burning, patient also complains of labial bumps x 2 week/painful, fetus active, no bleeding or leaking. no c/o contraction. curdy white discharge, vagina red, several cluster of lesion, crease of groin, papular. hepes culture today, nuswab plus, gynelotrimin x 7 days at night, no sex, ptl precaution, fkc bid. rtc 1 week oBC and gbs 02/13/25 -?-?-?-?-?-?-?-?-?-?-?-?- 35w 6d fetus activ e. no c/o of labor. continued c/o vaginitis. comfort measure, ordered diflucan 150 x3, r/s appointment for 02/15/25. GBS NV. discuss labor precaution and fkc bid 02/22/25 -?-?-?-?-?-?-?-?-?-?-?-?- 37w 1d 68.209 kg 121/87 occasional cephalic 36 145 active fetus active, occ uc, denies leaking or bleeding. questions about labor, denies epi gastric pain, no CAMPOS,no vision chg repeat gbs, test was not ran by lab robyn, discuss labor precaution, fkc bid, discuss PIH s/s. continue PNV, rtc 1 week obc 03/07/25 -?-?-?-?-?-?-?-?-?-?-?-?- 39w 0d 68.946 kg 109/74 occasional cephalic 38 156 active patient refused pelvic exam, unable to relax, heavy yeast, perineum clear, no lesion, vagina red,swollen. occ uc, no VB or LOF, fetus very active per patient, complains of rash and itchig abdomen x 5 days. c/o URI symptoms x 5 days, afebrile diflucan 150 x3, discuss labor precaution, fkc bid, hydrate, continue pnv. comfort measure for abdomen rash, hydroxyzine 25mg bid x 3 days for rash and itching, review fkc bid and comfort measure for early labor. rtc 1 week obc. comfort measure for cough/cold. ER precaution reviewed 03/15/25 -?-?-?-?-?-?-?-?-?-?-?-?- 40w 1d 69.456 kg 116/79 occasional cephalic 40 146 active No improvement in rash or itching, zyrtec did not help. occ uc, no bleeding or leaking, fetus active. patient reports very anxious about pain R/T labor and . She feels that she will not be able to tolerate vaginal exam and wants to know about elective c/s. She acknowledges that she is not prepared . fetus active No improvement in rash or it archie, zyrtec did not help. occ uc, no bleeding or leaking, fetus active. patient reports very anxious about pain R/T labor and . She feels that she will not be able to tolerate vaginal exam and wants to know about elective c/s. She acknowledges that she is not prepared . fetus active. macular rash abdomen and arms To [facility] to day for nst/bpp and complete OB sono. PIH labs and cholestasis lab, OB spoke with patient about elective c/s, sched for 03/20/25. patient will notify MD if she changes her mind and wants induction, start Hydroxyzine 25 tid and ursodiol 200 bid, labor precaution, fkc bid KYRA Calculator Estimated Delivery Date Method Current WG Current Estimate 03/14/25 LMP (Certain) 40w 1d Other Estimates 03/14/25 Ultrasound #1 40w 1d 03/14/25 Ultrasound #2 40w 1d Notes Visit Date: 03/07/25 Last Updated by: Sue Watts CNM 29 yo . lmp 9/3/24. EDC 03/14/25. O+,ABS-,RPR::NR, RUB imm, HBSAG-,HIV-<HC-, GC/CT-, + herpes, no outbreaks. GBS-. EFW 40% Office Procedures OB Clinic LOC & Office Proc's Nursing/Assessment Patient Status: Established Patient OB Clinic Nursing Assessment: BP Monitoring, Medication Reconciliation, Update PMH in EMR and Vital Signs OB Clinic Coordination of Care: Complex Care and Chronic Disease 1-5, Consent,records obtained, informed consent, Lab and Imaging orders and Results/Orders obtained Special Needs: Heart tones Established Patient Charge Established Patient Point Assignment: 125 Established Patient Point Charge: EP Level 4 (120-155) Assessment & Plan Diagnosis / Problem List (1) Encounter for supervision of normal first , third trimester: Status: Acute Plan to [facility] for NST/BPP, comp ob sono, PIH lab and cholestasis, OB discussed with patient elective c/s, schedule for 03/20. reviewed labor precaution,fkc bid, comfort measure. start hydroxyzine 25 mg tid for itching and ursodiol 200 bid Additional Plan Follow Up: 1 Week (obc)
[2025-03-15 10:11] VITALS: BP 116/79; PULSE 94; RESP 18; TEMP 36.8; O2SAT 98; BMI 30.8
== END 2025-03-15 10:38 | disposition home or self-care (01) ==
LOC: HODSOBC 09:49
PROVIDERS: PCP Advanced Practice Midwife; Referring Provider Advanced Practice Midwife; Supervising Provider Advanced Practice Midwife; Visit Provider Advanced Practice Midwife
DX: O09.893 Supervision of other high risk pregnancies, third trimester (principal); Z3A.40 40 weeks gestation of pregnancy; O48.0 Post-term pregnancy
CPT/HCPCS: 99214; G0463

== ENCOUNTER 2025-03-15 11:03 | Inpatient (IN) | payer MEDICAID, SELFPAY ==
[2025-03-15] VITALS (89 sets, daily range): BP systolic 60–120; BP diastolic 47–97; PULSE 70–116; RESP 14–95; TEMP 36.4–37.1; O2SAT 95–100; BMI 30.9
--- NOTE | 2025-03-15 11:09 | XR_ITS ---
Examination: Biophysical profile, ultrasound Date and time of exam: 11/15/1999 2512 noon INDICATIONS: Diagnosis cholecystitis is a , post dates Technique: Multiple transabdominal sonographic images of the pelvis abdomen obtained. Attention is directed to the breathing movement, gross body movement, amniotic fluid volume and tone. Findings: Amniotic fluid index 4.1 cm Total biophysical profile is 6 of 8. breathing movement is 2. Gross body movement is 2. tone is 2. Qualitative amniotic fluid volume is 0 Impression: Biophysical profile is 6 of 8.
--- NOTE | 2025-03-15 11:10 | XR_ITS ---
Examination: Complete OB ultrasound greater than 14 weeks Date and time of exam: 2024 1149 hours INDICATIONS: Labor evaluation, diagnosis cholestasis of , diagnosis post dates Findings: Viable intrauterine single fetus with single amniotic sac presentation Vertex Cardiac motion 145 BPM Placenta fundal grade 3 Umbilical cord insertion 3 vessel seen Amniotic fluid 4.7 cm with internal debris Cervix 3.7 cm Ovaries obscured by bowel gas. Composite estimated gestational age based on BPD, head circumference, abdominal circumference, femur length is 39 weeks 1 day Estimated weight 3693 g. Survey of intracranial anatomy, spinal anatomy, abdominal anatomy, four-chamber heart performed with no abnormalities identified. Impression: Viable intrauterine gestation vertex presentation.
[2025-03-15 11:43] LABS: Basophils % (Auto) 0 % (0-2.5); Eosinophils # (Auto) 0.5 Thou/mm3 (0.0-0.5); Eosinophils % (Auto) 5 % (0-10); Hematocrit 35.6 % (36.0-46.0); Hemoglobin 12.2 g/dL (12.0-16.0); Immature Granulocytes % (Auto) 2 % (0-0); Immature Granulocytes Auto 0.21 Thou/mm3 (0.00-0.00); Lymphocytes # (Auto) 2.4 Thou/mm3 (1.0-4.8); Lymphocytes % (Auto) 21 % (10-50); Mean Corpuscular HGB Conc 34.3 g/dl (31.0-37.0); Mean Corpuscular Hemoglobin 28.5 pg (25.0-35.0); Mean Corpuscular Volume 83 fL (80-100); Monocytes % (Auto) 9 % (0-12); Neutrophils # (Auto) 7.3 Thou/mm3 (1.8-7.7); Neutrophils % (Auto) 64 % (37-80); Nucleated Red Blood Cell % 0 /100 WBC (0); Platelet Count 205 Thou/mm3 (140-440); RDW Standard Deviation 43.3 fL (36.4-46.3); Red Blood Count 4.28 Miln/mm3 (4.00-5.20); White Blood Count 11.4 Thou/mm3 (3.6-11.0)
[2025-03-15 12:01] LABS: Alanine Aminotransferase 11 U/L (10-49); Albumin, Serum 3.8 gm/dL (3.5-5.0); Albumin/Globulin Ratio 1.8 (1.2-2.2); Alkaline Phosphatase 135 U/L (46-116); Anion Gap 11 (7-16); Aspartate Amino Transferase 23 U/L (0-34); BUN/Creatinine Ratio 10 Ratio (12-20); Bilirubin,Total 0.4 mg/dL (0.3-1.2); Blood Urea Nitrogen 5 mg/dL (9-23); Calcium 8.9 mg/dL (8.3-10.6); Calcium (Corrected) 9.1 mg/dL (8.5-10.1); Carbon Dioxide 21.3 mMol/L (20.0-31.0); Chloride 105 mMol/L (98-107); Creatinine (Component) 0.5 mg/dL (0.6-1.3); Globulin 2.1 gm/dL (2.3-3.5); Glucose 96 mg/dL (74-106); LDH (Lactate Dehydrogenase) 188 U/L (120-246); Osmolality,Calculated 271 (275-295); Potassium 3.7 mMol/L (3.4-5.1); Sodium 137 mMol/L (136-145); Total Protein 5.9 gm/dL (5.7-8.2); Uric Acid 4.3 mg/dL (3.1-7.8); eGFR > 60 See Note
[2025-03-15 12:03] LABS: Fibrinogen 430 mg/dL (175-375); Partial Thromboplastin Time 27.3 Seconds (22.0-36.0); Prothrombin Time 10.6 Seconds (9.0-12.2)
[2025-03-15 16:36] LABS: Collection Type, Urine Clean Catch
[2025-03-15 16:46] LABS: Bacteria,Urine 1+; Bilirubin,Urine Negative (Negative); Blood,Urine 1+ (Negative); Clarity,Urine Clear (Clear/Hazy); Color,Urine Lt-Yellow (Lt Yel-Yel); Glucose, Urine Negative (Negative); Ketones,Urine Negative (Negative); Leukocyte Esterase,Urine Positive (Negative); Nitrite,Urine Negative (Negative); Protein,Urine Negative (Neg - Trace); RBC,Urine 1 /hpf (0-3); Specific Gravity,Urine 1.009 (1.001-1.035); Squamous Epithelial Cell,Urine 2 /hpf (0-5); Urobilinogen,Urine Negative mg/dL (0.0-1.0); WBC,Urine 2 /hpf (0-5)
[2025-03-15 16:50] LABS: Creatinine,Random Urine 48 mg/dL (30-125); Protein Total, Random Urine 6 mg/dL (1-14)
[2025-03-15] MEDS: ceFAZolin/D5W 2 GM IV 2 GM/100 ML BAG IV (17:19)
[2025-03-15] MEDS: FAMOTIDINE INJ 10 MG/ML VIAL 2 ML 20 MG IV (17:20)
[2025-03-15] MEDS: METOCLOPRAMIDE INJ 5 MG/ML VIAL 2 ML 10 MG IVP (17:20)
[2025-03-15 17:23] LABS: Syphilis Nonreactive (Nonreactive)
--- NOTE | 2025-03-15 18:29 | PD.GYNPROC ---
Operative Note - BUCK [facility]ER Procedure Date of procedure: 03/15/25 Procedure Performed: Primary low-transverse section Indication: The patient is a 29-year-old G1, P0 with all care uncomplicated Sue Watts CNM who presented to clinic today for routine OB appointment at 40 and 1 sevenths weeks. Her cervix was closed thick and high. Patient was considering induction versus and was sent over to the hospital for an NST and HANS. Her HANS was 4. As patient had an unfavorable cervix and she had oligohydramnios patient opted for a primary low-transverse section versus an induction of labor. Pre-Op diagnosis: 1. Intrauterine at 40 1/7 weeks 2. Oligohydramnios with an HANS of 4 3. Declines induction of labor and opts for primary section. Post-Op diagnosis: Same Anesthesia type: Spinal Procedure description: For obtaining informed consent, the patient was brought back to the operating room and spinal anesthesia administered. She was then prepped and draped in the dorsal supine position with a leftward tilt in a normal sterile fashion. A Penny catheter was inserted to the patient's bladder. The patient was given 2 g of Ancef by anesthesia. A Pfannenstiel skin incision was made with a scalpel and carried down to the underlying fascia. The fascia was incised in the midline, and the fascial incision extended laterally using Segal scissors. The superior aspect of the fascia was grasped with Olena clamps and the underlying rectus muscles dissected off using blunt and sharp dissection. This was repeated in the infra aspect the incision. The rectus muscles were the midline, and the peritoneum was entered bluntly with the surgeon's fingers. This was extended superiorly and inferiorly with good visualization of the bladder. The bladder blade was inserted and the uterus was incised in a low transverse fashion with a scalpel above the bladder reflection. The uterine incision was extended laterally as a blunt dissection with the surgeon's fingers. The bag sanders ruptured and clear fluid was noted. The bladder blade was removed, and the infant was delivered in an atraumatic fashion. The cord was clamped and cut, and the infant was handed off to the waiting pediatric staff. Cord blood was collected. Cord gases were saved. The placenta was then manually removed, and handed off the operating field. The uterus was then exteriorized and cleared of all clots and debris. The uterine incision was repaired with 0 Monocryl in a running locked fashion. Excellent hemostasis was noted. The uterus was returned to the patient's abdominal cavity, and copious irrigation carried out with warm normal saline. The uterine incision was reexamined and noted to be hemostatic. After ensuring the rectus muscles were hemostatic these reapproximated the midline using a running suture of 0 Monocryl. The fascia was closed with 0 Vicryl in a running fashion. The subcutaneous tissues were irrigated and found to be hemostatic. These were reapproximated using a running suture of 2-0 plain. The skin was closed with a subcuticular suture of 4-0 Monocryl. The patient tolerated the procedure well, sponge, lap, instrument, and needle counts were correct x 2. The patient went to the recovery area awake and in stable condition. Pathology was none. Fluids: crystalloid Fluid amount (mL): 2,000 Urine output (mL): 75 Specimen: none Implants: None Estimated blood loss (ml): 400 Findings: Liveborn male in the OA presentation with a loose nuchal cord x 1 and no meconium. Apgars were 9 and 9, weight was 3820 g or approximately 8 pounds 7 ounces. The placenta was complete, spontaneous and grossly normal. Tubes, uterus and ovaries appeared grossly normal. Complications: none Surgical staff Anethesia: Ji Sharif CRNA assistant speech language pathologist: Rosalind DAY Operation Date: 03/15/25 16:45 <No data on this case meets the specified criteria> Diagnosis Discharge Diagnosis (1) Supervision of high risk in third trimester: Status: Acute (2) Oligohydramnios antepartum: Status: Acute Problem details: Declined induction of labor. Opted for primary low-transverse section at 40 1/7 weeks Problem List Completed Was Problem List Reviewed/Reconciled?: Yes (2) Oligohydramnios antepartum Qualifiers: Fetus number: single or unspecified fetus Qualified Code(s): O41.00X0 - Oligohydramnios, unspecified trimester, not applicable or unspecified
[2025-03-15] MEDS: OXYTOCIN in NS 20 units 20 UNIT/1,000 ML BAG 125 UNIT IV ×2 (18:55→23:06)
[2025-03-15] MEDS: RINGERS LACTATED 1000 ML 1,000 ML 999 ML IV (19:02)
[2025-03-15] MEDS: METHYLERGONOVINE INJ 0.2 MG/ML VIAL IM (19:20)
--- NOTE | 2025-03-15 20:01 | PC.NURSE ---
03/15/251857: TOLU Sharif called and notified of pts. low blood pressure 60/49. Orders received to place the HOB flat and start a 1L Lactated Ringers Bolus. Per TOLU Sharif he is on his way to bedside.
[2025-03-15] MEDS: HYDROcodone/APAP 5/325 TABLET 2 TAB PO (20:10)
[2025-03-15] MEDS: ONDANSETRON INJ 2 MG/ML INJ 2 ML 4 MG IVP (22:55)
[2025-03-16 00:20] VITALS: BP 113/75; PULSE 87; RESP 18; TEMP 36.8; O2SAT 97
[2025-03-16] MEDS: KETOROLAC INJ 30 MG/ML VIAL IVP ×5 (00:26→23:45)
[2025-03-16 04:00] VITALS: BP 107/73; PULSE 88; RESP 17; TEMP 36.7; O2SAT 97
--- NOTE | 2025-03-16 04:23 | PD.LDDELS ---
Data ([facility]) Data Hx Section: No Maternal Blood Type: O Pos Rubella Titre: Positive RPR: Non-reactive Labs: Negative: RPR, Hepatitis B, HIV, Chlamydia and Gonorrhea and Unknown: Group Beta Strep : 1 Term: 0 : 0 Livin Abortions: Spontaneous & Theraputic: 0 Delivery Data ([facility]) Labor Data ROM date: 03/15/25 ROM time: 18:05 Amniotic membrane rupture type: Artificial Amniotic fluid description: Clear Delivery Data EDC: 03/14/25 EDC calculated by:: LMP/early US confirmation Date of arrival to unit: 03/22/25 Onset of labor date: 03/15/25 Onset of labor time: 18:05 Complete dilation date: 03/15/25 Complete dilation time: 18:05 delivery date: 03/15/25 [place] delivery time: 18:05 Gestational age (weeks): 40 Gestational age (days): 1 Placenta delivery date: 03/15/25 Placenta delivery time: 18:06 Stage 1 total time: Labor - Stage 1 Duration 0 minutes Delivered by: Lulu Se[facility] ([facility]) Delivery nurse: Chavo Frazier RN, Sheron Hernandez RN [place] nurse: [email or web address] Search Coordinator at delivery: No Support person(s) at delivery: Sister in law Delivery Method Delivery method: Low Transverse Presentation: Vertex position: OA Anesthesia Type Anesthesia Type: Spinal Anesthesia type: Spinal Placenta Placenta delivery description: Manual Removal Cord blood sent to lab: Yes cord blood collection: Cord Blood Type EBL Estimated blood loss (ml): 400 Umbilical Cord cord description: 3 Vessels, Nuchal Cord and Loose Additional Procedures The operative report for further details Complications Complications: None [place] Data ([facility]) Data order: 1 's gender: Male Identification band number: [id number] weight (gms): 3820 g Weight (pounds): 8 lbs and 6.7 ozs 1 minute: 9 5 minutes: 9
[2025-03-16 05:18] LABS: Basophils % (Auto) 0 % (0-2.5); Eosinophils # (Auto) 0.2 Thou/mm3 (0.0-0.5); Eosinophils % (Auto) 1 % (0-10); Immature Granulocytes % (Auto) 1 % (0-0); Immature Granulocytes Auto 0.14 Thou/mm3 (0.00-0.00); Lymphocytes # (Auto) 1.3 Thou/mm3 (1.0-4.8); Lymphocytes % (Auto) 9 % (10-50); Mean Corpuscular HGB Conc 35.5 g/dl (31.0-37.0); Mean Corpuscular Hemoglobin 28.8 pg (25.0-35.0); Mean Corpuscular Volume 81 fL (80-100); Monocytes # (Auto) 1.2 Thou/mm3 (0.0-0.8); Monocytes % (Auto) 8 % (0-12); Neutrophils # (Auto) 11.7 Thou/mm3 (1.8-7.7); Neutrophils % (Auto) 80 % (37-80); Nucleated Red Blood Cell % 0 /100 WBC (0); Platelet Count 217 Thou/mm3 (140-440); RDW Standard Deviation 41.6 fL (36.4-46.3); Red Blood Count 3.82 Miln/mm3 (4.00-5.20); White Blood Count 14.6 Thou/mm3 (3.6-11.0)
--- NOTE | 2025-03-16 07:58 | PD.LDPPPRG ---
Subjective Subjective Interval history: Delivery type: Patient doing well this morning. No acute complaints. Ambulating, tolerating p.o. and voiding without difficulty. HTN/Pre-Eclampsia screen: No chest pain, shortness of breath, headache, visual changes, epigastric or right upper quadrant pain. Breast-feeding, lochia diminishing. Bowel: Flatus+/ BM+ Exam Vital Signs Temp Pulse Resp BP Pulse Ox O2 Del Method 98.1 F 88 17 107/73 97 Room Air 03/16/25 04:00 03/16/25 04:00 03/16/25 04:00 03/16/25 04:00 03/16/25 04:00 03/16/25 04:00 Constitutional Constitutional: no acute distress Routine HEENT Exam Head: Present normocephalic and atraumatic Eye: Present EOMI and PERRL ENT: Present mucous membranes moist Routine Neck Exam Neck: Present supple and trachea midline Routine Respiratory Exam Respiratory: Present chest non-tender, lungs clear, normal breath sounds and no resp distress Routine Cardiovascular Exam Cardiovascular: Present RRR Routine Abdominal Exam Abdominal: Present soft and normoactive bowel sounds Routine Extremities Exam Extremities: Present full ROM Routine Skin Exam Skin: Present intact, dry and warm Routine Neurological Exam Neurological: Present alert, oriented X3 and CN II-XII intact Routine Psychiatric Exam Psychiatric: Present normal affect and normal thought process Objective Labs 03/16/25 04:50 03/15/25 11:28 Labs: Laboratory Results - last 24 hr 03/15/25 03/15/25 03/15/25 11:28 14:20 14:30 WBC 11.4 H RBC 4.28 Hgb 12.2 Hct 35.6 L MCV 83 MCH 28.5 MCHC 34.3 RDW Std Deviation 43.3 Plt Count 205 Neut % (Auto) 64 Lymph % (Auto) 21 [place] % (Auto) 9 Eos % (Auto) 5 Baso % (Auto) 0 Neut # (Auto) 7.3 Lymph # (Auto) 2.4 [place] # (Auto) 1.0 H Eos # (Auto) 0.5 Baso # (Auto) 0.0 Immature Gran # (Auto) 0.21 H Absolute Nucleated RBC 0.00 Immature Gran % 2 H Nucleated RBC % 0 PT 10.6 INR 1.0 APTT 27.3 Fibrinogen 430 H Sodium 137 Potassium 3.7 Chloride 105 Carbon Dioxide 21.3 Anion Gap 11 BUN 5 L Creatinine 0.5 L Estim Creat Clear Calc Not Performed. eGFR > 60 BUN/Creatinine Ratio 10 L Glucose 96 Calculated Osmolality 271 L Uric Acid 4.3 Calcium 8.9 Corrected Calcium 9.1 Total Bilirubin 0.4 AST 23 ALT 11 Alkaline Phosphatase 135 H Lactate Dehydrogenase 188 Total Protein 5.9 Albumin 3.8 Globulin 2.1 L Albumin/Globulin Ratio 1.8 Ur Collection Type Clean Catch Urine Color Lt-Yellow Urine Clarity Clear Urine pH 6.0 Ur Specific [place] 1.009 Urine Protein Negative Urine Glucose (UA) Negative Urine Ketones Negative Urine Blood 1+ A Urine Nitrite Negative Urine Bilirubin Negative Urine Urobilinogen (Auto) Negative Ur Leukocyte Esterase Positive Urine RBC 1 Urine WBC 2 Ur Squamous Epith Cells 2 Urine Bacteria 1+ A Ur Random Creatinine 48 U Random Total Protein 6 Syphilis Serology Nonreactive Blood Type O Positive Antibody Screen NEGATIVE Blood Bank Wristband ID Yes 03/16/25 04:50 WBC 14.6 H RBC 3.82 L Hgb 11.0 L Hct 31.0 L MCV 81 MCH 28.8 MCHC 35.5 RDW Std Deviation 41.6 Plt Count 217 Neut % (Auto) 80 Lymph % (Auto) 9 L [place] % (Auto) 8 Eos % (Auto) 1 Baso % (Auto) 0 Neut # (Auto) 11.7 H Lymph # (Auto) 1.3 [place] # (Auto) 1.2 H Eos # (Auto) 0.2 Baso # (Auto) 0.0 Immature Gran # (Auto) 0.14 H Absolute Nucleated RBC 0.00 Immature Gran % 1 H Nucleated RBC % 0 PT INR APTT Fibrinogen Sodium Potassium Chloride Carbon Dioxide Anion Gap BUN Creatinine Estim Creat Clear Calc eGFR BUN/Creatinine Ratio Glucose Calculated Osmolality Uric Acid Calcium Corrected Calcium Total Bilirubin AST ALT Alkaline Phosphatase Lactate Dehydrogenase Total Protein Albumin Globulin Albumin/Globulin Ratio Ur Collection Type Urine Color Urine Clarity Urine pH Ur Specific [place] Urine Protein Urine Glucose (UA) Urine Ketones Urine Blood Urine Nitrite Urine Bilirubin Urine Urobilinogen (Auto) Ur Leukocyte Esterase Urine RBC Urine WBC Ur Squamous Epith Cells Urine Bacteria Ur Random Creatinine U Random Total Protein Syphilis Serology Blood Type Antibody Screen Blood Bank Wristband ID Assessment & Plan Problem List (1) Supervision of high risk in third trimester: Status: Acute (2) Oligohydramnios antepartum: Status: Acute (3) delivery delivered: Status: Acute Assessment and plan: 1. Continue routine /post-op care 2. Labs reviewed, cbc appropriate 3. Remove dressing/Penny 4. Encourage to ambulate, shower 5. Encourage PO intake, breast feeding Time Spent With Patient Time: Total time spent is greater than 50% in coordination of care (as documented) at patient's floor/unit and/or counseling patient:
[2025-03-16 08:00] VITALS: BP 97/60; PULSE 81; RESP 16; TEMP 36.7; O2SAT 97
[2025-03-16] MEDS: Milk Of Magnesia Susp 30 ML UDC PO (11:57)
[2025-03-16] MEDS: SIMETHICONE 80 MG CHEW PO (11:57)
[2025-03-16 12:00] VITALS: BP 102/66; PULSE 91; RESP 17; TEMP 36.7; O2SAT 97
[2025-03-16 16:00] VITALS: BP 99/61; PULSE 90; RESP 17; TEMP 36.7; O2SAT 97
[2025-03-16 20:15] VITALS: BP 107/71; PULSE 83; RESP 18; TEMP 37.2; O2SAT 97
[2025-03-17 04:02] VITALS: BP 96/65; PULSE 83; RESP 16; TEMP 36.9; O2SAT 99
[2025-03-17] MEDS: KETOROLAC INJ 30 MG/ML VIAL IVP ×2 (06:06→11:22)
--- NOTE | 2025-03-17 06:57 | ESDS_ITS ---
DS: Providers Provider Date of admission: 03/15/25 13:15 Primary care physician: Physician No Primary/Family Admitting Provider: Lulu Sexton MD ([facility]) Attending Provider on Admission: Dar Metcalf MD Consults: 03/15/25 18:52 Referral Routine Comment: Attending Provider on DC: Dar Metcalf MD Discharging Provider: Dar Metcalf MD DS: Diagnosis Problem List Completed Was Problem List Reviewed/Reconciled?: Yes Summary/Hosp Course Peripartum Data Delivery Method: Low Transverse Procedures: Procedures Operation Date: 03/15/25 16:45 Actual Procedure Side Surgeon p in OB Not Applicable Lulu Sexton ([facility])MD Time Spent with Patient Time attestation: Total time spent providing and/or coordinating discharge services: Exam Vital Signs Temp Pulse Resp BP Pulse Ox O2 Del Method 98.4 F 83 16 96/65 99 Room Air 03/17/25 04:02 03/17/25 04:02 03/17/25 04:02 03/17/25 04:02 03/17/25 04:02 03/17/25 04:02 Discharge Plan Plan Patient Disposition: HOME (Self Care) Patient condition on transfer: Stable Prescriptions/Referrals Prescriptions/Med Rec: New hydrocodone-acetaminophen 5-325 mg tablet 1 tab PO Q6H MDD 4 PRN (Reason: pain) Qty: 20 0RF Rx Instructions: She has a C section ibuprofen 600 mg tablet 600 mg PO Q6H PRN (Reason: pain) Qty: 30 0RF Discontinued hydroxyzine HCl 25 mg tablet 25 mg PO TID Qty: 30 1RF ursodiol 200 mg capsule 200 mg PO BID Qty: 30 0RF triamcinolone acetonide 0.1 % ointment 1 applic topical TID Qty: 30 2RF Referrals: No Primary/Family,Physician [Primary Care Provider] - Patient/Caregiver Discharge Instructions Education Materials: C Section Dc Print Language: Austrian Stand Alone Forms: Cynthia Award Info., Patient Portal Info Letter Discharge Order Discharge Orders: Discharge (Routine); Ordered 03/17/25 Ordered By: Dar Metcalf Planned Discharge Date 03/17/25
--- NOTE | 2025-03-17 07:40 | ESPR_ITS ---
RE: CARMELITA CHRISTIAN : 1995 DATE OF SERVICE: 03/17/2025 S: Postop day #2, the patient denies any problem or complaints. She is voiding. She is ambulating. She is tolerated regular diet. She is passing flatus. She denies any excessive vaginal bleeding. She denies any dizziness or lightheadedness. She denies any chest pain, palpitations, shortness of breath, and lower extremity pain. O: Vital Signs: Blood pressure 96/65, heart rate 83, respirations 16, temperature 98.4, and pulse oximetry 99% on room air. Lungs: Clear to auscultation bilaterally. Heart: Regular rate and rhythm. Abdomen: Incision clean and intact. Fundus is firm. Extremities: Nontender. LABORATORY DATA: Hemoglobin pre-delivery is 12.2. Post-delivery is 11.0. A: Postoperative day #2, status post delivery. P: Discharge home. Discharge instructions given. Follow up in the office in 1 week. DT: 06:54:22 TT: 07:38:00 Ref: [id number] - TID: [id number]
[2025-03-19 22:08] LABS: Chenodeoxycholic Acid* <0.5 umol/L (< OR = 3.9); Cholic Acid* 0.6 umol/L (< OR = 2.8); Deoxycholic Acid* <0.5 umol/L (< OR = 2.3)
[2025-03-20 07:16] LABS: Total Bile Acids <1.5 umol/L (< OR = 8.3)
--- NOTE | 2025-03-25 06:53 | PD.LDHP ---
Documentation for date of: 03/15/25 OB Labor/Induct. HPI History of Present Illness Chief complaint: Post dates monitoring/Itchiness all over : 1 Para: 0 Term pregnancies: 0 pregnancies: 0 Living children: 0 History of Abortions: Spontaneous and Elective: 0 History of Vaginal deliveries: 0 History of sections: No History of : No Date of last menstrual period: 06/07/24 KYRA: 03/14/25 Gestational Age (weeks): 40 Gestational Age (days): 1 Gestational age based on last menstrual period: 41 History of present illness: The patient is a 29 y/o all PNC started at [facility], transferred to [facility] at 32 weeks. She was seen in the office on 03/15/25 by Sue and reported severe itching all over her body. The pt was 40 1/7 weeks. She was examined by Sue and barely tolerated a vaginal exam, She was cl/th/high. Sue sent her to [facility] for a NST and BPP and ordered cholestasis labs. The patient and her spouse requested a primary CS the next week as she needed time to think about it. She reported good movement. no UCs or LOF. On admission to [facility], a NST was reactive but the HANS was 4. The patient declined an IOL for oligohydraminos and requested a primary CS. History of Present Dating criteria: based on 1st trimester US only Adequate Care: Yes Ultrasounds: normal mid trimester US Obstetrical complications: none Medical complications: none Labs Maternal Blood Type: O Pos Labs: Positive: Rubella Titre, Negative: RPR, Hepatitis B, HIV, Chlamydia and Gonorrhea and Unknown: Herpes Type 1, Herpes Type 2, Group Beta Strep and Covid-19 Past Medical History Surgical History SURGICAL: Negative Section Meds Home Medications and Allergies Allergies Allergy/AdvReac Type Severity Reaction Status Date / Time No Known Allergies Allergy Verified 03/22/25 16:03 OB Exam Physical Exam Vital signs: Temp Pulse Resp BP Pulse Ox O2 Del Method 98.4 F 83 16 96/65 99 Room Air 03/17/25 04:02 03/17/25 04:02 03/17/25 04:02 03/17/25 04:02 03/17/25 04:02 03/17/25 04:02 Constitutional Constitutional: no acute distress and cooperative Comments: Pt has keratosis pilaris on upper arms and shoulders and a PUPPS like rash on her abdomen and upper thighs Routine Cardiovascular Exam Cardiovascular: Present RRR Routine Abdominal Exam Abdominal: Present soft and normoactive bowel sounds Comments: EFW 7 1/2 lbs by Barrett Detailed Labor and Delivery Exam Dilation (cm): Cl Effacement (%): Thick Cervix position: posterior station: -3 Consistency: firm Presentation: Vertex Membranes: intact monitor accelerations: 15x15 monitor decelerations: None senior living variability: Moderate (11-25) Contraction frequency (min): Rare Routine Extremities Exam Extremities: Present full ROM Routine Skin Exam Skin: Present intact, dry and warm Routine Psychiatric Exam Psychiatric: Present normal affect and normal thought process OB Results Labs 03/16/25 04:50 03/15/25 11:28 OB Assessment & Plan Assessment and Plan (1) Supervision of high risk in third trimester: Status: Acute (2) Oligohydramnios antepartum: Status: Acute Assessment and plan: The patient has oligohydraminos at term with an unfavorable cervix and declines IOL. She opts for a primary CS. The risks of a CS were discussed in detail including the risk of bleeding, blood transfusion,damage to bowel, bladder, blood vessels, nerves or other organs. Prolonged hospital stay and further surgery should any of the above occur. All questions were answered and all consents were signed. Will proceed with primary CS on 03/15/25. (2) Oligohydramnios antepartum Qualifiers: Fetus number: single or unspecified fetus Qualified Code(s): O41.00X0 - Oligohydramnios, unspecified trimester, not applicable or unspecified
== END 2025-03-17 16:56 | disposition home or self-care (01) | DRG 540 ==
LOC: S4SX 15:39 → S4NX 17:57
PROVIDERS: Admitting Provider Obstetrics & Gynecology; Visit Provider Specialist
PROC: 10D00Z1 Extraction of Products of Conception, Low, Open Approach (ICD-10-PCS; CPT 59514; principal; 2025-03-15 16:30)
DX: O41.03X0 Oligohydramnios, third trimester, not applicable or unspecified (principal); O48.0 Post-term pregnancy; O69.81X0 Labor and delivery complicated by cord around neck, without compression, not applicable or unspecified; Z37.0 Single live birth; Z3A.40 40 weeks gestation of pregnancy
CPT/HCPCS: 36415; 59025; 76805; 76819; 80053; 81001; 82570; 83615; 83789; 84156; 84450; 84460; 84550; 85025; 85384; 85610; 85730; 86780; 86850; 86900; 86901; A4314; A4649; J0689; J1885; J2210; J2274; J2371; J2405; J2590; J2765; J3010; J3490; J7120; A9270; J2270

== ENCOUNTER 2025-03-22 15:33 | Outpatient (AMB) | payer MEDICAID, SELFPAY ==
[2025-03-22 16:02] VITALS: BP 119/80; PULSE 85; RESP 17; TEMP 37; O2SAT 96
--- NOTE | 2025-03-22 16:02 | AMBOBPPN_ITS ---
Vital Signs 03/22/25 16:02 Weight 65.487 kg Weight Measurement Method Standing Scale BP 119/80 Blood Pressure Source Automatic Cuff Blood Pressure Location Right Upper Arm Position Sitting Respiration 17 Pulse 85 Pulse Source Monitor Temp 98.6 F Temp Source Temporal Artery Scan Pulse Oximetry (%) 96 Oxygen Delivery Method Room Air Allergies/Home Meds Allergies & Medications Allergies No Known Allergies Allergy (Verified 03/22/25 16:03) Medication Reconciliation hydrocodone 5 mg-acetaminophen 325 mg tablet 1 tab PO Q6H PRN pain #20 tabs 03/17/25 [Rx Confirmed 03/22/25] ibuprofen 600 mg tablet 600 mg PO Q6H PRN pain #30 tabs 03/17/25 [Rx Confirmed 03/22/25] ursodiol 200 mg capsule 200 mg PO BID PRN itching #20 caps 03/17/25 [Rx Confirmed 03/22/25] amoxicillin 875 mg-potassium clavulanate 125 mg tablet 1 tab PO BID 7 days #14 tabs 03/22/25 [Rx] furosemide 20 mg tablet (Lasix) 20 mg PO BID 3 days #6 tabs 03/22/25 [Rx] methylprednisolone 4 mg tablets in a dose pack (Medrol (Timbo)) See Rx Instructions PO PER PKG DIR #21 tabs 03/22/25 [Rx] Intake Visit Data Collection New Patient or Established: Established Patient (seen at [facility] within 3 years) Reason for Visit:: CESECTION CONCERN Seen by Clinical Staff ONLY (RN/MA): No Purse Seiner Required: No Do You Feel Safe at Home: Yes Authorities Contacted: N/A PCP or OBGYN visit in last 3 months: Yes Date of Last PCP or OBGYN visit: 03/17/25 Hx Now: No Are you currently on any form of Control: No Pain Present Currently: Yes Pain Location: Abdomen (CSECTION AREA ) Pain Scale Used: Hughes-Escobar/Numerical Pain scale:: 6 Smoking Status Smoking Status: Never smoker 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: Past Medical History Past Medical History: No Hx Neurological Disorders, No Hx Breast Cancer, No Hx Cardiac Disorders, No Hx Cancer, No Hx Blood Disorders, No Hx Anemia, No Hx Gastrointestinal Disorders, No Hx Renal Disease, No Hx Diabetes Mellitus Type 1 and No Hx Diabetes Mellitus Type 2 Questionnaires Covid-19 Vaccine Questionnaire Has patient been vacinated for Covid-19 Have you been vacinated for Covid-19: No Social History Living Situation History Marital Status: Life Partner Lives With: Family Housing: House Tobacco History Smoking Status: Never smoker Second Hand Smoke Exposure: No Alcohol History Alcohol Intake: Never Substance Use History Substance Use: NONE Domestic Abuse History Do You Feel Safe at Home: Yes EPDS - PP Depression Screening [place] Pospartum Depression Screen I have been able to laugh and see the funny side of things: (1) Not quite so much now I have looked forward with enjoyment to things: (1) Rather less than I used to I have blamed myself unnecessarily when things went wrong: (0) No, never I have been anxious or worried for no good reason: (2) Yes, sometimes I have felt scared or panicky for no very good reason: (0) No, not at all Things have been getting on top of me: (0) No, I have been coping as well as ever I have been so unhappy that I have had difficulty sleeping: (2) Yes, sometimes I have felt sad or miserable: (1) Not very often I have been so unhappy that I have been crying: (1) Only occasionally The thought of harming myself has occurred to me: (0) Never Total Score: EPDS Score: Referral is indicated for score of 9 or more, suicidal, or if provider believes patient is depressed regardless of score.: 7 EPDS completed yes Care OB Visit Log OB Flowsheet Initial Weight: Not Recorded Date -?-?-?-?-?-?-?-?-?-?-?-?- EGA Weight BP Alb Glu CTX Pres Fundal ht FHR Mov Dilation Station Effacement Hx Notes Visit Note 01/23/25 -?-?-?-?-?-?-?-?-?-?-?-?- 32w 6d 66.735 kg 103/66 absent 33 124 ac tive Patient is OB transfer of care from [facility]. Last period was June 07, 2024. Estimated due date March 12, 2025. So far has been uncomplicated. Patient had several maternal- medicine appointments. Her last sono was January 16, 2025. Reports movement. Denies any signs or symptoms of labor. Patient has backache impression. Medical release for OB records was signed. 02/06/25 -?-?-?-?-?-?-?-?-?-?-?-?- 34w 6d 66.791 kg 116/75 absent cephalic 34 135 active complaints of vaginal discharge, itching and burning, patient also complains of labial bumps x 2 week/painful, fetus active, no bleeding or leaking. no c/o contraction. curdy white discharge, vagina red, several cluster of lesion, crease of groin, papular. hepes culture today, nuswab plus, gynelotrimin x 7 days at night, no sex, ptl precaution, fkc bid. rtc 1 week oBC and gbs 02/13/25 -?-?-?-?-?-?-?-?-?-?-?-?- 35w 6d fetus activ e. no c/o of labor. continued c/o vaginitis. comfort measure, ordered diflucan 150 x3, r/s appointment for 02/15/25. GBS NV. discuss labor precaution and fkc bid 02/22/25 -?-?-?-?-?-?-?-?-?-?-?-?- 37w 1d 68.209 kg 121/87 occasional cephalic 36 145 active fetus active, occ uc, denies leaking or bleeding. questions about labor, denies epi gastric pain, no CAMPOS,no vision chg repeat gbs, test was not ran by lab robyn, discuss labor precaution, fkc bid, discuss PIH s/s. continue PNV, rtc 1 week obc 03/07/25 -?-?-?-?-?-?-?-?-?-?-?-?- 39w 0d 68.946 kg 109/74 occasional cephalic 38 156 active patient refused pelvic exam, unable to relax, heavy yeast, perineum clear, no lesion, vagina red,swollen. occ uc, no VB or LOF, fetus very active per patient, complains of rash and itchig abdomen x 5 days. c/o URI symptoms x 5 days, afebrile diflucan 150 x3, discuss labor precaution, fkc bid, hydrate, continue pnv. comfort measure for abdomen rash, hydroxyzine 25mg bid x 3 days for rash and itching, review fkc bid and comfort measure for early labor. rtc 1 week obc. comfort measure for cough/cold. ER precaution reviewed 03/15/25 -?-?-?-?-?-?-?-?-?-?--?-?- 40w 1d 69.456 kg 116/79 occasional cephalic 40 146 active No improvement in rash or itching, zyrtec did not help. occ uc, no bleeding or leaking, fetus active. patient reports very anxious about pain R/T labor and . She feels that she will not be able to tolerate vaginal exam and wants to know about elective c/s. She acknowledges that she is not prepared . fetus active No improvement in rash or it archie, zyrtec did not help. occ uc, no bleeding or leaking, fetus active. patient reports very anxious about pain R/T labor and . She feels that she will not be able to tolerate vaginal exam and wants to know about elective c/s. She acknowledges that she is not prepared . fetus active. macular rash abdomen and arms To [facility] to day for nst/bpp and complete OB sono. PIH labs and cholestasis lab, OB spoke with patient about elective c/s, sched for 03/20/25. patient will notify MD if she changes her mind and wants induction, start Hydroxyzine 25 tid and ursodiol 200 bid, labor precaution, fkc bid KYRA Calculator Estimated Delivery Date Method Current WG Current Estimate 03/14/25 LMP (Certain) 41w 1d Other Estimates 03/14/25 Ultrasound #1 41w 1d 03/14/25 Ultrasound #2 41w 1d Notes Visit Date: 03/07/25 Last Updated by: Sue Watts CNM 29 yo . lmp 06/07/24. EDC 03/14/25. O+,ABS-,RPR::NR, RUB imm, HBSAG-,HIV-<HC-, GC/CT-, + herpes, no outbreaks. GBS-. EFW 40% HPI Interval History: Patient is a 29-year-old -0-0-1 status post primary for oligohydramnios at term. Patient's HANS was 4. She declined induction of labor. And opted for primary elective . Her was 03/15/[address] Lolita Sexton. Today she thought she might have some white drainage around her incision. She admits she might be a little anxious because she was in the ER yesterday with her son's because his umbilical cord stump fell off early she was concerned this might cause an infection. She denies fevers. She reports some chills. Patient is very itchy and has a PUPP like rash. She also appears to have nummular eczema and states her skin is very sensitive. No heavy bleeding. No depression. She is breast-feeding but supplementing. Her mother is at home helping her also. She denies any depression Was or delivery considered high risk: No Delivery type: Was labor induced: no Gestational age at delivery (weeks): 40.1 Delivery date: 03/15/25 Delivering provider: Dr. Lolita Sexton Delivery complications: No Is patient infant: Yes Is patient sexually active: No Exam Narrative Physical exam: Abdomen is soft nontender incision is clean dry and intact she has one small pimple with whitish discharge by her incision and this is what she was concerned about. There is some swelling on her abdomen and it does feel hard and indurated but not erythematous. Extremities showed 2+ pitting edema ankles and below. Patient has a PUPP like rash on her abdomen and her upper thighs that is quite itchy. General Limitations: no limitations General Appearance: alert, in no apparent distress, comfortable, cooperative and well groomed Office Procedures OB Clinic LOC & Office Proc's Nursing/Assessment Patient Status: Established Patient OB Clinic Nursing Assessment: Medication Reconciliation, Update PMH in EMR and Vital Signs OB Clinic Coordination of Care: Complex Care and Chronic Disease 1-5, Consent,records obtained, informed consent, Education Simp Pt/Fam and Staff clarify orders Established Patient Charge Established Patient Point Assignment: 85 Antepartum Initial or Follow-up Antepartum Initial Visit: Yes Assessment & Plan Diagnosis / Problem List (1) delivery delivered: Status: Acute Assessment and Plan: Doing well . Reassurance given. Will prescribe Lasix for 2 days to decrease swelling. Given a prescription for Augmentin in case patient's wound becomes infected. I told her to only take this if the incision is erythematous and draining. Follow-up in 1 week and 6 weeks (2) PUPP (pruritic urticarial papules and plaques of ): Status: Acute Assessment and Plan: Medrol Dosepak taper. Care Reviewed delivery summary and any complications: Yes Uterus involuted to: 20 weeks Perineal / incision healing noted: Yes Screened for depression: Yes Depression counseling provided: No Discussed family planning & contraception: No Counseling on safe resumption of sexual activity: No Counseling on gradual excercise: Yes Discussed and concerns (describe), provided support: Yes Referred to social media content specialist: No Counseled on good nutrition, hydration, and self care: Yes Reviewed vaccine status: No Additional follow up plans: follow up in 4-6 weeks care discussed; questions answered: feeding and sleep
== END 2025-03-22 16:13 | disposition home or self-care (01) ==
LOC: HODSOBC 15:33
PROVIDERS: Supervising Provider Obstetrics & Gynecology; Visit Provider Obstetrics & Gynecology
DX: Z39.2 Encounter for routine postpartum follow-up (principal); Z39.1 Encounter for care and examination of lactating mother

== ENCOUNTER 2025-04-03 13:29 | Outpatient (AMB) | payer MEDICAID, SELFPAY ==
--- NOTE | 2025-04-03 13:49 | AMBOBPPN_ITS ---
Vital Signs 04/03/25 13:50 Height 1.5 m Height Method Stated Weight 61.802 kg Weight Measurement Method Standing Scale BMI 27.4 BP 110/70 Blood Pressure Source Automatic Cuff Blood Pressure Location Right Upper Arm Position Sitting Respiration 17 Pulse 73 Pulse Source Monitor Temp 98.6 F Temp Source Temporal Artery Scan Pulse Oximetry (%) 97 Oxygen Delivery Method Room Air Allergies/Home Meds Allergies & Medications Allergies No Known Allergies Allergy (Verified 04/03/25 13:50) Intake Visit Data Collection New Patient or Established: Established Patient (seen at [facility] within 3 years) Reason for Visit:: CSECTION FOLLOW UP Seen by Clinical Staff ONLY (RN/MA): No 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 Do You Feel Safe at Home: Yes Authorities Contacted: N/A PCP or OBGYN visit in last 3 months: Yes Hx Now: No Are you currently on any form of Control: No Pain Present Currently: Yes Pain Location: Abdomen Pain Scale Used: Hughes-Escobar/Numerical Pain scale:: 6 Smoking Status Smoking Status: Never smoker 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: Past Medical History Past Medical History: No Hx Neurological Disorders, No Hx Breast Cancer, No Hx Cardiac Disorders, No Hx Cancer, No Hx Blood Disorders, No Hx Anemia, No Hx Gastrointestinal Disorders, No Hx Renal Disease, No Hx Diabetes Mellitus Type 1 and No Hx Diabetes Mellitus Type 2 Questionnaires Covid-19 Vaccine Questionnaire Has patient been vacinated for Covid-19 Have you been vacinated for Covid-19: No Social History Living Situation History Marital Status: Life Partner Lives With: Family Housing: House Tobacco History Smoking Status: Never smoker Second Hand Smoke Exposure: No Alcohol History Alcohol Intake: Never Substance Use History Substance Use: NONE Domestic Abuse History Do You Feel Safe at Home: Yes EPDS - PP Depression Screening [place] Pospartum Depression Screen I have been able to laugh and see the funny side of things: (0) As much as I always could I have looked forward with enjoyment to things: (0) As much as I ever did I have blamed myself unnecessarily when things went wrong: (0) No, never I have been anxious or worried for no good reason: (0) No, not at all I have felt scared or panicky for no very good reason: (0) No, not at all Things have been getting on top of me: (0) No, I have been coping as well as ever I have been so unhappy that I have had difficulty sleeping: (0) No, not at all I have felt sad or miserable: (0) No, not at all I have been so unhappy that I have been crying: (0) No, never The thought of harming myself has occurred to me: (0) Never EPDS completed yes Care OB Visit Log OB Flowsheet Initial Weight: Not Recorded Date -?-?-?-?-?-?-?-?-?-?-?-?- EGA Weight BP Alb Glu CTX Pres Fundal ht FHR Mov Dilation Station Effacement Hx Notes Visit Note 01/23/25 -?-?-?-?-?-?-?-?-?-?-?-?- 32w 6d 66.735 kg 103/66 absent 33 124 ac tive Patient is OB transfer of care from [facility]. Last period was June 07, 2024. Estimated due date March 12, 2025. So far has been uncomplicated. Patient had several maternal- medicine appointments. Her last sono was January 16, 2025. Reports movement. Denies any signs or symptoms of labor. Patient has backache impression. Medical release for OB records was signed. 02/06/25 -?-?-?-?-?-?-?-?-?-?-?-?- 34w 6d 66.791 kg 116/75 absent cephalic 34 135 active complaints of vaginal discharge, itching and burning, patient also complains of labial bumps x 2 week/painful, fetus active, no bleeding or leaking. no c/o contraction. curdy white discharge, vagina red, several cluster of lesion, crease of groin, papular. hepes culture today, nuswab plus, gynelotrimin x 7 days at night, no sex, ptl precaution, fkc bid. rtc 1 week oBC and gbs 02/13/25 -?-?-?-?-?-?-?-?-?-?-?-?- 35w 6d fetus activ e. no c/o of labor. continued c/o vaginitis. comfort measure, ordered diflucan 150 x3, r/s appointment for 02/15/25. GBS NV. discuss labor precaution and fkc bid 02/22/25 -?-?-?-?-?-?-?-?-?-?-?-?- 37w 1d 68.209 kg 121/87 occasional cephalic 36 145 active fetus active, occ uc, denies leaking or bleeding. questions about labor, denies epi gastric pain, no CAMPOS,no vision chg repeat gbs, test was not ran by lab robyn, discuss labor precaution, fkc bid, discuss PIH s/s. continue PNV, rtc 1 week obc 03/07/25 -?-?-?-?-?-?-?-?-?-?-?-?- 39w 0d 68.946 kg 109/74 occasional cephalic 38 156 active patient refused pelvic exam, unable to relax, heavy yeast, perineum clear, no lesion, vagina red,swollen. occ uc, no VB or LOF, fetus very active per patient, complains of rash and itchig abdomen x 5 days. c/o URI symptoms x 5 days, afebrile diflucan 150 x3, discuss labor precaution, fkc bid, hydrate, continue pnv. comfort measure for abdomen rash, hydroxyzine 25mg bid x 3 days for rash and itching, review fkc bid and comfort measure for early labor. rtc 1 week obc. comfort measure for cough/cold. ER precaution reviewed 03/15/25 -?-?-?-?-?-?-?-?-?--?-?-?- 40w 1d 69.456 kg 116/79 occasional cephalic 40 146 active No improvement in rash or itching, zyrtec did not help. occ uc, no bleeding or leaking, fetus active. patient reports very anxious about pain R/T labor and . She feels that she will not be able to tolerate vaginal exam and wants to know about elective c/s. She acknowledges that she is not prepared . fetus active No improvement in rash or it archie, zyrtec did not help. occ uc, no bleeding or leaking, fetus active. patient reports very anxious about pain R/T labor and . She feels that she will not be able to tolerate vaginal exam and wants to know about elective c/s. She acknowledges that she is not prepared . fetus active. macular rash abdomen and arms To [facility] to day for nst/bpp and complete OB sono. PIH labs and cholestasis lab, OB spoke with patient about elective c/s, sched for 03/20/25. patient will notify MD if she changes her mind and wants induction, start Hydroxyzine 25 tid and ursodiol 200 bid, labor precaution, fkc bid KYRA Calculator Estimated Delivery Date Method Current WG Current Estimate 03/14/25 LMP (Certain) 43w 0d Other Estimates 03/14/25 Ultrasound #1 43w 0d 03/14/25 Ultrasound #2 43w 0d Notes Visit Date: 03/07/25 Last Updated by: Sue Watts CNM 29 yo . lmp 06/07/24. EDC 03/14/25. O+,ABS-,RPR::NR, RUB imm, HBSAG-,HIV-<HC-, GC/CT-, + herpes, no outbreaks. GBS-. EFW 40% HPI Interval History: Patient presents for a wound check. She is no longer itchy. I gave her a Medrol Dosepak. She feels much better. Incision is clean dry and intact. No depression she is working on breast-feeding. The baby is about 2-1/2 weeks old. Was or delivery considered high risk: No Delivery type: Was labor induced: no Gestational age at delivery (weeks): 40 Delivery date: 03/15/25 Delivering provider: Dr Lolita Sexton Delivery complications: No Is patient infant: Yes Is patient sexually active: No Exam Narrative Physical exam: Fundus firm incision clean dry and intact no signs of a PUPPS rash today. General Limitations: no limitations General Appearance: alert, in no apparent distress, cooperative and well groomed Office Procedures OB Clinic LOC & Office Proc's Nursing/Assessment Patient Status: Established Patient OB Clinic Nursing Assessment: Medication Reconciliation, Update PMH in EMR and Vital Signs OB Clinic Coordination of Care: Complex Care and Chronic Disease 1-5, Consent,records obtained, informed consent, Education Simp Pt/Fam and Staff cl arify orders Established Patient Charge Established Patient Point Assignment: 85 Post Follow-up Visit Post Follow up Visit: Yes Assessment & Plan Care Reviewed delivery summary and any complications: Yes Uterus involuted to: 13 weeks Perineal / incision healing noted: Yes Screened for depression: Yes Depression counseling provided: No Discussed family planning & contraception: No Counseling on safe resumption of sexual activity: No Counseling on gradual excercise: Yes Discussed and concerns (describe), provided support: Yes Referred to commercial sales specialist: No Counseled on good nutrition, hydration, and self care: Yes Reviewed vaccine status: No Chronic & current problems reconciled on problem list: No Additional follow up plans: Follow-up in 4 weeks Infant care discussed; questions answered: feeding
[2025-04-03 13:50] VITALS: BP 110/70; PULSE 73; RESP 17; TEMP 37; O2SAT 97; BMI 27.4
== END 2025-04-03 14:29 | disposition home or self-care (01) ==
LOC: HODSOBC 13:29
PROVIDERS: Supervising Provider Obstetrics & Gynecology; Visit Provider Obstetrics & Gynecology
DX: Z39.2 Encounter for routine postpartum follow-up (principal); Z39.1 Encounter for care and examination of lactating mother